=== PATIENT | female | born 1980 | race Native Hawaiian/Other Pacific Islander ===

== ENCOUNTER 2021-08-21 18:41 | Observation (INO) | payer OTHER ==
[~2021-08-21] VITALS: Ht 167.6 cm; Wt 134.9 kg
[2021-08-21 19:46] VITALS: BP 124/65; TEMP 99.3
[2021-08-21 20:20] VITALS: BP 124/65; TEMP 99.3; Ht 167.6 cm; Wt 134.9 kg
[2021-08-21] MEDS ORDERED: PANTOPRAZOLE SO40 M1 PO (21:13)
[2021-08-21] MEDS ORDERED: FERROUS SULF325 MG PO (21:13)
[2021-08-21] MEDS ORDERED: POTA20TA4 PO (21:16)
[2021-08-21] MEDS ORDERED: VITAMIN D50000 UNIT PO (21:20)
[2021-08-21] MEDS ORDERED: HYDROXYZ HCL50 MG PO (21:21)
[2021-08-21] MEDS ORDERED: HYDROCHLOROTHIAZIDE PO (21:23)
[2021-08-21] MEDS ORDERED: METOPROLOL PO (21:23)
[2021-08-21] MEDS ORDERED: IBU800 MG PO (21:24)
[2021-08-21] MEDS ORDERED: GABA300C2 PO (21:25)
[2021-08-21] MEDS ORDERED: BUPR1SUBFM SL (21:30)
[2021-08-21] MEDS ORDERED: SEROQUEL100 MG PO (21:31)
[2021-08-21 21:39] LABS: PLATELET COUNT 269 K/uL (152-353)
[2021-08-21] MEDS ORDERED: VITAMIN DE1000 MCG/M INJ (21:44)
[2021-08-21] MEDS ORDERED: HYDR25TA60 PO (21:45)
[2021-08-21 22:05] LABS: POTASSIUM 3.1 mmol/L (3.6-5.2)
[2021-08-21 23:46] VITALS: BP 104/55; TEMP 98.7
[2021-08-22] VITALS (8 sets, daily range): BP systolic 101–118; BP diastolic 51–73; TEMP 97.8–98.7
[2021-08-23 03:46] VITALS: BP 107/35; TEMP 98.5
[2021-08-23 06:08] LABS: POTASSIUM 3.9 mmol/L (3.6-5.2)
[2021-08-23 08:03] VITALS: BP 105/55; TEMP 97.9
[2021-08-23] MEDS ORDERED: SPIRONOLACT25 MG PO (09:27)
== END 2021-08-23 11:13 | disposition home or self-care (01) ==
LOC: MED/SURG 18:41
PROVIDERS: ADMIT Internal Medicine; ATTEND Internal Medicine
DX: E87.6 Hypokalemia (principal); I10 Essential (primary) hypertension; R60.0 Localized edema; M54.89 Other dorsalgia
CPT/HCPCS: 36415; 80048; 80053; 82088; 83735; 84133; 85027; 87635; 96361; 99220; G0378; G0379; J3475; U0003